=== PATIENT | female | born 1985 | race Caucasian/White ===

== ENCOUNTER 2018-11-17 18:42 | Emergency (ER) | payer MEDICAID, OTHER ==
[~2018-11-17] VITALS: Ht 162.6 cm; Wt 65.0 kg
[2018-11-17 18:47] VITALS: BP 108/71
== END 2018-11-18 00:09 | disposition left against medical advice (07) ==
LOC: ER 18:43
DX: R06.02 Shortness of breath (principal); R07.89 Other chest pain; Z53.21 Procedure and treatment not carried out due to patient leaving prior to being seen by health care provider
CPT/HCPCS: 71046; 93005

== ENCOUNTER 2018-11-20 14:25 | Emergency (ER) | payer MEDICAID, OTHER ==
[~2018-11-20] VITALS: Ht 162.6 cm; Wt 66.0 kg
[2018-11-20 15:03] VITALS: BP 132/81
[2018-11-20] MEDS ORDERED: HYDROcodone/acetaminophen 10/325mg tab PO ONE (16:15)
[2018-11-20] MEDS ORDERED: IBUP-1984 PO (16:16)
[2018-11-20] MEDS ORDERED: HYDR-4353 PO (16:16)
== END 2018-11-20 17:07 | disposition home or self-care (01) ==
LOC: ER 14:26
DX: R07.89 Other chest pain (principal); Z90.49 Acquired absence of other specified parts of digestive tract
CPT/HCPCS: 71120; 99283

== ENCOUNTER 2019-08-19 08:03 | Emergency (ER) | payer MEDICAID, OTHER ==
[~2019-08-19] VITALS: Ht 162.6 cm; Wt 68.2 kg
[2019-08-19] MEDS ORDERED: normal saline 1000ML IV soln IVB ONE (08:20)
[2019-08-19] MEDS ORDERED: ketorolac trometh. 30mg/ml inj. IV ONE (08:20)
[2019-08-19] MEDS ORDERED: LORazepam 2 mg/ml vial IV ONE (08:20)
[2019-08-19 08:56] LABS: CREATINE KINASE 123 U/L (26-192)
[2019-08-19] MEDS ORDERED: acetaminophen 325mg tablet PO ONE (09:10)
[2019-08-19 10:55] VITALS: BP 108/60
== END 2019-08-19 10:59 | disposition home or self-care (01) ==
LOC: ER 08:04
DX: F15.10 Other stimulant abuse, uncomplicated (principal); R52 Pain, unspecified; Z90.49 Acquired absence of other specified parts of digestive tract
CPT/HCPCS: 36415; 82550; 96374; 96375; 99283; J1885; J2060; J7030

== ENCOUNTER 2021-05-22 19:11 | Emergency (ER) | payer MEDICAID ==
[~2021-05-22] VITALS: Ht 165.1 cm; Wt 71.8 kg
[2021-05-22] MEDS ORDERED: morphine 4 MG/ML inj SYRINge IV ONE (22:10)
[2021-05-22] MEDS ORDERED: ondansetron/PF 4mg/2ml inj IV ONE (22:10)
[2021-05-22] MEDS ORDERED: normal saline 1000ml 1,000 ML IV ONE (22:10)
[2021-05-22] MEDS ORDERED: iohexol 300mg/ml 100ml inj. ONE (23:05)
[2021-05-22 23:10] LABS: BASOPHILS % (AUTO) 0.4 % (0-1); EOSINOPHILS # (AUTO) 0.2 X10'3 (0-0.9); EOSINOPHILS % (AUTO) 3.1 % (0-6); HEMATOCRIT 38.4 % (35.0-45.0); HEMOGLOBIN 12.7 g/dl (12.0-16.0); LYMPHOCYTES # (AUTO) 1.3 X10'3 (1.1-4.8); LYMPHOCYTES % (AUTO) 19.2 % (21-51); MEAN CORPUSCULAR HEMOGLOBIN 30.1 PG (27.0-31.0); MEAN CORPUSCULAR HGB CONC 33.2 g/dL (33.0-36.5); MEAN CORPUSCULAR VOLUME 90.9 FL (78-98); MEAN PLATELET VOLUME 7.6 FL (7.4-10.4); MONOCYTES # (AUTO) 0.4 X10'3 (0-0.9); MONOCYTES % (AUTO) 6.6 % (2-12); NEUTROPHILS # (AUTO) 4.8 X10'3 (1.8-7.7); NEUTROPHILS % (AUTO) 70.7 % (42-75); PLATELET COUNT 338 X10'3 (140-440); RED BLOOD COUNT 4.23 X10'6 (4.20-5.60); RED CELL DISTRIBUTION WIDTH 13.4 % (11.5-14.5); WHITE BLOOD COUNT 6.8 X10'3 (4.5-11.0)
[2021-05-22 23:27] LABS: ALBUMIN 3.8 G/DL (3.4-5.0); ANION GAP 4 (8-16); BETA HCG,QUANTITATIVE < 1.0 mIU/ml; BLOOD UREA NITROGEN 12 MG/DL (7-18); BUN/CREATININE RATIO 14.3 (6.6-38.0); CALCIUM 8.2 MG/DL (8.5-10.1); CHLORIDE 104 MMOL/L (99-107); CREATININE 0.84 MG/DL (0.40-0.90); GLUCOSE 87 MG/DL (70-104); LIPASE 64 U/L (73-393); POTASSIUM 3.5 MMOL/L (3.5-5.1); SODIUM 134 MMOL/L (135-145); TOTAL CARBON DIOXIDE 26.5 MMOL/L (24-32); eGFR 78 ML/MIN
[2021-05-22 23:55] LABS: CLARITY,URINE SLIGHTLY CLOUDY (Clear); COLOR,URINE YELLOW (Yellow); GLUCOSE, URINE NEGATIVE (Neg); KETONES,URINE NEGATIVE (Neg); LEUKOCYTE ESTERASE ,URINE NEGATIVE (Neg); NITRITES, URINE NEGATIVE (Neg); OCCULT BLOOD,URINE TRACE-INTACT (Neg); PROTEIN,URINE NEGATIVE (Neg); UA COLLECTION TYPE CLN CATCH MIDSTREAM; UROBILINOGEN,URINE 0.2 E.U/dL (0.2-1.0)
[2021-05-23 00:02] LABS: BACTERIA,URINE 1+ /HPF (Neg); MUCUS STRANDS MODERATE /LPF (Neg); RBC,URINE 0-2 /HPF (0-2); SQUAMOUS EPITHELIAL CELL,UR MODERATE /LPF (FEW); WBC,URINE 0-4 /HPF (0-4)
[2021-05-23] MEDS ORDERED: DIPH-186 PO (01:05)
[2021-05-23 01:26] VITALS: BP 105/69
== END 2021-05-23 01:27 | disposition home or self-care (01) ==
LOC: ER 19:12
DX: R19.7 Diarrhea, unspecified (principal); R10.12 Left upper quadrant pain; F15.10 Other stimulant abuse, uncomplicated
CPT/HCPCS: 36415; 74177; 80048; 81001; 83690; 84702; 85025; 96361; 96374; 96375; 99285; J2270; J2405; J7030; Q9967

== ENCOUNTER 2021-11-06 18:17 | Outpatient (CLI) | payer MEDICAID ==
[~2021-11-06 18:17] MED LIST: DIPH-186 PO
[2021-11-06 18:44] LABS: BASOPHILS # (AUTO) 0.1 X10'3 (0-0.2); BASOPHILS % (AUTO) 1.5 % (0-1); EOSINOPHILS # (AUTO) 0.2 X10'3 (0-0.9); HEMATOCRIT 33.8 % (35.0-45.0); HEMOGLOBIN 11.2 g/dl (12.0-16.0); LYMPHOCYTES # (AUTO) 2.1 X10'3 (1.1-4.8); MEAN CORPUSCULAR HEMOGLOBIN 29.5 PG (27.0-31.0); MEAN CORPUSCULAR HGB CONC 33.2 g/dL (33.0-36.5); MEAN PLATELET VOLUME 8.5 FL (7.4-10.4); MONOCYTES # (AUTO) 0.8 X10'3 (0-0.9); MONOCYTES % (AUTO) 10.9 % (2-12); NEUTROPHILS # (AUTO) 3.7 X10'3 (1.8-7.7); NEUTROPHILS % (AUTO) 53.6 % (42-75); PLATELET COUNT 360 X10'3 (140-440); RED CELL DISTRIBUTION WIDTH 13.4 % (11.5-14.5); WHITE BLOOD COUNT 6.9 X10'3 (4.5-11.0)
[2021-11-06 19:25] LABS: ALBUMIN 3.9 G/DL (3.4-5.0); ANION GAP 14 (8-16); BLOOD UREA NITROGEN 13 MG/DL (7-18); BUN/CREATININE RATIO 17.3 (6.6-38.0); C-REACTIVE PROTEIN 0.15 MG/DL (0.0-0.5); CALCIUM 8.8 MG/DL (8.5-10.1); CHLORIDE 108 MMOL/L (99-107); CREATININE 0.75 MG/DL (0.40-0.90); GLUCOSE 99 MG/DL (70-104); POTASSIUM 4.2 MMOL/L (3.5-5.1); SODIUM 145 MMOL/L (135-145); TOTAL CARBON DIOXIDE 22.7 MMOL/L (24-32); VANCOMYCIN,RANDOM 0.3 UG/ML; eGFR 88 ML/MIN
== END 2021-11-06 23:59 | disposition home or self-care (01) ==
LOC: LAB SPEC 18:17
PROVIDERS: ATTEND Orthopaedic Surgery
DX: M99.63 Osseous and subluxation stenosis of intervertebral foramina of lumbar region (principal)
CPT/HCPCS: 36415; 80048; 80202; 85025; 85651; 86140

== ENCOUNTER 2024-03-08 19:33 | Emergency (ER) | payer MEDICAID ==
[~2024-03-08] VITALS: Ht 162.6 cm; Wt 96.2 kg
[2024-03-08 20:16] LABS: BASOPHILS % (AUTO) 0.5 % (0-1); EOSINOPHILS # (AUTO) 0.1 X10'3 (0-0.9); HEMATOCRIT 38.4 % (35.0-45.0); HEMOGLOBIN 12.8 g/dl (12.0-16.0); LYMPHOCYTES # (AUTO) 1.6 X10'3 (1.1-4.8); LYMPHOCYTES % (AUTO) 17.4 % (21-51); MEAN CORPUSCULAR HEMOGLOBIN 29.5 PG (27.0-31.0); MEAN CORPUSCULAR HGB CONC 33.3 g/dL (33.0-36.5); MEAN CORPUSCULAR VOLUME 88.6 FL (78-98); MEAN PLATELET VOLUME 7.6 FL (7.4-10.4); MONOCYTES % (AUTO) 10.5 % (2-12); NEUTROPHILS # (AUTO) 6.4 X10'3 (1.8-7.7); NEUTROPHILS % (AUTO) 70.6 % (42-75); PLATELET COUNT 325 X10'3 (140-440); RED BLOOD COUNT 4.33 X10'6 (4.20-5.60); WHITE BLOOD COUNT 9.1 X10'3 (4.5-11.0)
[2024-03-08 20:30] LABS: ALANINE AMINOTRANSFERASE 29 U/L (12-78); ALBUMIN 3.7 G/DL (3.4-5.0); ALKALINE PHOSPHATASE 80 IU/L (46-116); ANION GAP 5 (8-16); ASPARTATE AMINO TRANSFERASE 22 U/L (10-37); BILIRUBIN,TOTAL 0.3 MG/DL (0.1-1.0); BLOOD UREA NITROGEN 6 MG/DL (7-18); BUN/CREATININE RATIO 7.4 (10.0-20.0); CHLORIDE 105 MMOL/L (99-107); CREATININE 0.81 MG/DL (0.40-0.90); GLUCOSE 96 MG/DL (70-104); LIPASE 25 U/L (16-77); POTASSIUM 4.5 MMOL/L (3.5-5.1); SODIUM 142 MMOL/L (135-145); TOTAL CARBON DIOXIDE 31.9 MMOL/L (24-32); TOTAL PROTEIN 7.5 G/DL (6.4-8.2); eCRCL 82 ML/MIN; eGFR 80 ML/MIN
[2024-03-08 20:42] LABS: BILIRUBIN,URINE NEGATIVE (Neg); CLARITY,URINE SLIGHTLY CLOUDY (Clear); COLOR,URINE YELLOW (Yellow); GLUCOSE, URINE NEGATIVE (Neg); KETONES,URINE NEGATIVE (Neg); LEUKOCYTE ESTERASE ,URINE MODERATE (Neg); NITRITES, URINE POSITIVE (Neg); OCCULT BLOOD,URINE TRACE-INTACT (Neg); PROTEIN,URINE 30 mg/dl (Neg)
[2024-03-08 20:43] LABS: URINE HCG NEGATIVE (NEG)
[2024-03-08 20:44] LABS: UA COLLECTION TYPE CLN CATCH MIDSTREAM
[2024-03-08 20:50] LABS: MUCUS STRANDS MANY /LPF (Neg); SQUAMOUS EPITHELIAL CELL,UR FEW /LPF (FEW); TRANSITIONAL EPI CELLS,URINE FEW /HPF
[2024-03-08 20:52] LABS: BACTERIA,URINE 4+ /HPF (Neg); WBC CLUMPS,URINE FEW /HPF (NEGATIVE); WBC,URINE 50-100 /HPF (0-4)
[2024-03-08 23:16] VITALS: BP 118/79; PULSE 107; RESP 20; TEMP 98.8; O2SAT 100
[2024-03-08] MEDS ORDERED: MICO45CR73 VG (23:30)
[2024-03-08] MEDS ORDERED: ONDA8TAB13 PO (23:30)
[2024-03-08] MEDS ORDERED: CEPH-585 PO (23:30)
[2024-03-08] MEDS: CefTRIAXone 1000mg IM Kit (w/lidocaine diluent) IM ONE (23:45)
[2024-03-09 00:06] LABS: URINE AMPHETAMINE SCREEN POSITIVE (Neg); URINE BARBITUATE SCREEN NEGATIVE (Neg); URINE BENZODIAZEPINES SCREEN NEGATIVE (Neg); URINE CANNABINOID SCREEN NEGATIVE (Neg); URINE COCAINE SCREEN NEGATIVE (Neg); URINE METHADONE SCREEN NEGATIVE (Neg); URINE PHENCYCLIDINE SCREEN NEGATIVE (Neg)
== END 2024-03-08 23:58 | disposition home or self-care (01) ==
LOC: ER 19:34
DX: N10 Acute pyelonephritis (principal); F15.90 Other stimulant use, unspecified, uncomplicated; Z79.899 Other long term (current) drug therapy; Z90.49 Acquired absence of other specified parts of digestive tract
CPT/HCPCS: 36415; 74176; 80053; 80305; 81001; 81025; 83690; 85025; 87077; 87088; 87186; 96372; 99285; J0696

== ENCOUNTER 2024-05-20 08:56 | Emergency (ER) | payer MEDICAID ==
[~2024-05-20] VITALS: Ht 165.1 cm; Wt 81.0 kg
[~2024-05-20 08:56] MED LIST changes: +MICO45CR73 VG; +ONDA-245 PO
[2024-05-20 09:04] VITALS: BP 127/81; PULSE 106; TEMP 97.7; O2SAT 100
[2024-05-20] MEDS ORDERED: PRED20TA PO (09:41)
[2024-05-20] MEDS ORDERED: HYDR-3686 PO (09:41)
[2024-05-20] MEDS: dexamethasone sod phosphate 10mg/ml inj IM STA (10:13)
[2024-05-20 10:17] VITALS: RESP 18
== END 2024-05-20 10:20 | disposition home or self-care (01) ==
LOC: ER 08:57
DX: L29.9 Pruritus, unspecified (principal); F15.90 Other stimulant use, unspecified, uncomplicated; Z79.899 Other long term (current) drug therapy; Z90.49 Acquired absence of other specified parts of digestive tract
CPT/HCPCS: 96372; 99283; J1100

== ENCOUNTER 2024-06-25 14:33 | Emergency (ER) | payer MEDICAID ==
[~2024-06-25] VITALS: Ht 162.6 cm; Wt 82.0 kg
[2024-06-25 19:06] LABS: BASOPHILS # (AUTO) 0.1 X10'3 (0-0.2); BASOPHILS % (AUTO) 0.9 % (0-1); EOSINOPHILS # (AUTO) 0.2 X10'3 (0-0.9); EOSINOPHILS % (AUTO) 2.5 % (0-6); HEMATOCRIT 34.6 % (35.0-45.0); HEMOGLOBIN 11.4 g/dl (12.0-16.0); LYMPHOCYTES # (AUTO) 1.9 X10'3 (1.1-4.8); LYMPHOCYTES % (AUTO) 30.3 % (21-51); MEAN CORPUSCULAR HEMOGLOBIN 29.3 PG (27.0-31.0); MEAN CORPUSCULAR HGB CONC 32.9 g/dL (33.0-36.5); MEAN PLATELET VOLUME 7.4 FL (7.4-10.4); MONOCYTES # (AUTO) 0.7 X10'3 (0-0.9); MONOCYTES % (AUTO) 10.6 % (2-12); NEUTROPHILS # (AUTO) 3.5 X10'3 (1.8-7.7); NEUTROPHILS % (AUTO) 55.7 % (42-75); PLATELET COUNT 356 X10'3 (140-440); RED BLOOD COUNT 3.89 X10'6 (4.20-5.60); RED CELL DISTRIBUTION WIDTH 14.1 % (11.5-14.5); WHITE BLOOD COUNT 6.2 X10'3 (4.5-11.0)
[2024-06-25 19:20] LABS: ALANINE AMINOTRANSFERASE 46 U/L (12-78); ALBUMIN 3.2 G/DL (3.4-5.0); ALBUMIN/GLOBULIN RATIO 0.9 (1.1-1.5); ALKALINE PHOSPHATASE 90 IU/L (46-116); ANION GAP 4 (8-16); ASPARTATE AMINO TRANSFERASE 26 U/L (10-37); BILIRUBIN,TOTAL 0.2 MG/DL (0.1-1.0); BLOOD UREA NITROGEN 6 MG/DL (7-18); BUN/CREATININE RATIO 8.1 (10.0-20.0); CALCIUM 8.6 MG/DL (8.5-10.1); CHLORIDE 107 MMOL/L (99-107); CREATININE 0.74 MG/DL (0.40-0.90); GLUCOSE 86 MG/DL (70-104); SODIUM 141 MMOL/L (135-145); TOTAL CARBON DIOXIDE 29.9 MMOL/L (24-32); TOTAL PROTEIN 6.8 G/DL (6.4-8.2); eCRCL 90 ML/MIN; eGFR 88 ML/MIN
[2024-06-25 19:30] LABS: URIC ACID 3.7 MG/DL (2.5-6.2)
[2024-06-25] MEDS ORDERED: CEPH-585 PO (19:51)
[2024-06-25] MEDS: CefTRIAXone 1000mg IM Kit (w/lidocaine diluent) IM ONE (19:58)
[2024-06-25 20:07] VITALS: BP 122/74; PULSE 87; RESP 16; O2SAT 100
[2024-06-25 20:08] VITALS: TEMP 98.9
== END 2024-06-25 20:15 | disposition home or self-care (01) ==
LOC: ER 14:34
DX: L03.116 Cellulitis of left lower limb (principal); F15.90 Other stimulant use, unspecified, uncomplicated; Z79.899 Other long term (current) drug therapy; Z90.49 Acquired absence of other specified parts of digestive tract
CPT/HCPCS: 36415; 73610; 80053; 84550; 85025; 96372; 99284; J0696

== ENCOUNTER 2024-12-13 20:36 | Emergency (ER) | payer MEDICAID ==
[~2024-12-13] VITALS: Ht 162.6 cm; Wt 88.2 kg
[2024-12-13 21:29] LABS: BASOPHILS % (AUTO) 0.6 % (0-1); EOSINOPHILS # (AUTO) 0.1 X10'3 (0-0.9); EOSINOPHILS % (AUTO) 1.6 % (0-6); HEMATOCRIT 36.3 % (35.0-45.0); HEMOGLOBIN 11.9 g/dl (12.0-16.0); LYMPHOCYTES # (AUTO) 1.8 X10'3 (1.1-4.8); LYMPHOCYTES % (AUTO) 21.3 % (21-51); MEAN CORPUSCULAR HEMOGLOBIN 29.6 PG (27.0-31.0); MEAN CORPUSCULAR HGB CONC 32.8 g/dL (33.0-36.5); MEAN CORPUSCULAR VOLUME 90.1 FL (78-98); MEAN PLATELET VOLUME 7.7 FL (7.4-10.4); MONOCYTES # (AUTO) 1.3 X10'3 (0-0.9); MONOCYTES % (AUTO) 15.6 % (2-12); NEUTROPHILS # (AUTO) 5.3 X10'3 (1.8-7.7); NEUTROPHILS % (AUTO) 60.9 % (42-75); PLATELET COUNT 321 X10'3 (140-440); RED BLOOD COUNT 4.03 X10'6 (4.20-5.60); RED CELL DISTRIBUTION WIDTH 14.2 % (11.5-14.5); WHITE BLOOD COUNT 8.6 X10'3 (4.5-11.0)
[2024-12-13 21:40] LABS: ALANINE AMINOTRANSFERASE 87 U/L (12-78); ALBUMIN 3.2 G/DL (3.4-5.0); ALBUMIN/GLOBULIN RATIO 0.8 (1.1-1.5); ALKALINE PHOSPHATASE 134 IU/L (46-116); ANION GAP 7 (8-16); ASPARTATE AMINO TRANSFERASE 60 U/L (10-37); BILIRUBIN,TOTAL 0.2 MG/DL (0.1-1.0); BLOOD UREA NITROGEN 9 MG/DL (7-18); BUN/CREATININE RATIO 12.7 (10.0-20.0); CALCIUM 8.6 MG/DL (8.5-10.1); CHLORIDE 104 MMOL/L (99-107); CREATININE 0.71 MG/DL (0.40-0.90); GLUCOSE 117 MG/DL (70-104); LIPASE 30 U/L (16-77); POTASSIUM 3.5 MMOL/L (3.5-5.1); SODIUM 140 MMOL/L (135-145); TOTAL CARBON DIOXIDE 28.6 MMOL/L (24-32); TOTAL PROTEIN 7.3 G/DL (6.4-8.2); eCRCL 93 ML/MIN; eGFR > 90 ML/MIN
[2024-12-13 21:44] LABS: TOTAL CELLS COUNTED 100
[2024-12-13 23:07] VITALS: BP 127/75; PULSE 104; O2SAT 100
[2024-12-13 23:11] LABS: BILIRUBIN,URINE NEGATIVE (Neg); CLARITY,URINE CLEAR (Clear); COLOR,URINE YELLOW (Yellow); GLUCOSE, URINE NEGATIVE (Neg); KETONES,URINE NEGATIVE (Neg); LEUKOCYTE ESTERASE ,URINE TRACE (Neg); NITRITES, URINE POSITIVE (Neg); OCCULT BLOOD,URINE SMALL (Neg); PROTEIN,URINE TRACE mg/dl (Neg); UROBILINOGEN,URINE 0.2 E.U/dL (0.2-1.0)
[2024-12-13 23:12] LABS: URINE HCG NEGATIVE (NEG)
[2024-12-13 23:27] LABS: UA COLLECTION TYPE CLN CATCH MIDSTREAM
[2024-12-13 23:28] LABS: BACTERIA,URINE 4+ /HPF (Neg); RBC,URINE 0-2 /HPF (0-2); SQUAMOUS EPITHELIAL CELL,UR FEW /LPF (FEW); WBC,URINE 30-50 /HPF (0-4)
[2024-12-14] MEDS ORDERED: CIPR-259 PO (00:11)
[2024-12-14] MEDS ORDERED: IBUP-1986 PO (00:13)
[2024-12-14] MEDS ORDERED: ciprofloxacin 250mg tablet PO STA (00:15)
[2024-12-14 00:44] VITALS: RESP 15
[2024-12-14] MEDS: CefTRIAXone 1000mg IM Kit (w/lidocaine diluent) IM STA (00:48)
[2024-12-14] MEDS: ciprofloxacin 250mg tablet PO STA (00:48)
[2024-12-14 00:55] VITALS: TEMP 99.1
== END 2024-12-14 00:58 | disposition home or self-care (01) ==
LOC: ER 20:37
DX: N10 Acute pyelonephritis (principal); F15.90 Other stimulant use, unspecified, uncomplicated; Z79.899 Other long term (current) drug therapy; Z90.49 Acquired absence of other specified parts of digestive tract; Z60.2 Problems related to living alone
CPT/HCPCS: 80053; 81001; 81025; 83690; 85007; 85025; 87077; 87088; 87186; 96372; 99283; J0696